=== PATIENT | female | born 1965 | race Caucasian/White ===

== ENCOUNTER 2018-01-12 08:00 | Inpatient (IN) ==
[2018-02-02] MEDS ORDERED: Heparin 10,000 UNITS/10 ML Vial (for IV use) ONE (06:24)
[2018-02-02] MEDS ORDERED: Protamine Sulfate Inj 50 MG/5 ML Vial ONE (06:24)
[2018-02-02] MEDS ORDERED: Thrombin Topical Soln 20,000 UNIT Vial TOPICAL ONE (06:24)
[2018-02-02] MEDS ORDERED: Bupivacaine 0.5% Inj 50 ML MDV Vial ONE (06:25)
[2018-02-02] MEDS ORDERED: Heparin/NS PF Inj 500 ML ONE ×2 (06:25→08:26)
[2018-02-02] MEDS ORDERED: ceFAZolin 2 GM Premix Inj 2 GM/50 ML PIGGYBACK IV.SIG ONE (06:25)
[2018-02-02] MEDS ORDERED: Sodium Chlor 0.9% Inj 500 ML IV.CONT ONE ×2 (06:30→07:19)
[2018-02-02] MEDS ORDERED: Metoprolol Tartrate 25 MG Tablet PO ONE (06:30)
[2018-02-02] MEDS ORDERED: Chlorhexidine Gluconate 2% 1 Pack (2 Cloths) TOPICAL ONE (06:30)
[2018-02-02 07:01] LABS: Baso # (Auto) 0.1 th/mm3 (0.0-0.2); Baso % (Auto) 0.8 % (0.0-2.0); Eos # (Auto) 0.3 th/mm3 (0.0-0.4); Eos % (Auto) 3.8 % (0.0-4.0); Hematocrit 41.4 % (35.0-46.0); Hemoglobin 14.1 gm/dL (11.6-15.3); Lymph # (Auto) 1.4 th/mm3 (1.0-4.8); Lymph % (Auto) 18.1 % (9.0-44.0); Mean Corpuscular HGB Conc 34.2 % (32.0-36.0); Mean Corpuscular Hemoglobin 32.7 pg (27.0-34.0); Mean Corpuscular Volume 95.6 fL (80.0-100.0); Mean Platelet Volume 9.1 fL (7.0-11.0); Mono # (Auto) 0.7 th/mm3 (0.0-0.9); Mono % (Auto) 8.8 % (0.0-8.0); Neut # (Auto) 5.2 th/mm3 (1.8-7.7); Neut % (Auto) 68.5 % (16.0-70.0); Platelet Count 190 th/mm3 (150-450); Red Blood Count 4.33 mil/mm3 (4.00-5.30); Red Cell Distribution Width 13.6 % (11.6-17.2); White Blood Count 7.6 th/mm3 (4.0-11.0)
--- NOTE | 2018-02-02 07:01 | P.HPVS ---
History of Present Illness Chief Complaint: L LE rest pain, failed distal bypasses History of Present Illness: 52 yo female with 2 prior distal bypasses elsewhere. Presents with severe CLTI/ PAD and no autogenous conduit. Plan for LEFT LE bypass - Inpatient Certification If this patient has been admitted as an Inpatient: I certify that the inpatient services were ordered in accordance with Medicare regulations governing the order. This includes certification that hospital inpatient services are reasonable and necessary and in the case of services not specified as inpatient-only under 42 CFR 419.22(n), that they are appropriately provided as inpatient services in accordance to with the 2-midnight benchmark under 43 CFR 412.3(e) Estimated Total Length of Stay (Days): 7 Plans for Post Hospital Care: Home Review of Systems Constitutional: Denies chills Eyes: Denies blind spots Cardiovascular: Denies chest pain PMFSH - History History Provided By: Patient - Medical History Medical History: Medical History (Last Reviewed 02/02/18 @ 06:59 by Coleman Gutiérrez MD) GERD (gastroesophageal reflux disease) Hiatal hernia Claudication High cholesterol Hx of iron deficiency anemia Neuropathy Pain in left leg Peripheral vascular disease Wears dentures Wears partial dentures - Surgical History Surgical History: Surgical History (Last Reviewed 02/02/18 @ 06:59 by Coleman Gutiérrez MD) History of dental surgery Hx of extremity bypass graft Hx of tubal ligation - Tobacco History Tobacco Use In Past 30 Days: Yes Smoking Status: Current every day smoker Tobacco Type: Cigarettes - Alcohol History How Often Do You Have a Drink Containing Alcohol: 2 to 4 times a month Medications and Allergies Active Medications: Active Medications Lactated Ringer's (Lr 1000 Ml Inj) 1,000 mls @ 30 mls/hr IV.CONT .Q24H ONE Stop: 02/03/18 06:29 Sodium Chloride (Ns Inj) 500 mls @ 30 mls/hr IV.CONT .[id number] ONE Stop: 02/02/18 23:09 Allergies Allergy/AdvReac Type Severity Reaction Status Date / Time No Known Allergies Allergy Verified 02/02/18 06:45 Home Medications Medication Instructions Recorded Confirmed Type alprazolam 0.5 mg PO DAILY PRN 01/29/18 02/02/18 History atorvastatin 40 mg PO DAILY 01/29/18 02/02/18 History clopidogrel [Plavix] 75 mg PO HS 01/29/18 02/02/18 History gabapentin 600 mg PO BID 01/29/18 02/02/18 History naproxen 500 mg PO BID PRN 01/29/18 02/02/18 History omeprazole 20 mg PO DAILY 01/29/18 02/02/18 History Physical Exam Neuro: awake, alert. HEENT: NC/AT Neck: no JVD Heart: reg rate, no M Lungs: clear B Abdomen: nontender Vascular: L groin incision well healed L calf incision well healed nonpalpable pedal pulses, nonpalpable femoral pulses L foot ruborous Caprini VTE Risk Assessment Caprini VTE Risk Assessment: Moderate/High Risk (score >= 2) VTE Mechanical Exception: LE ischemia Caprini Risk Assessment Model: Point Value = 1 Point Value = 2 Point Value = 3 Point Value = 5 Age 41-60 Minor surgery BMI > 25 kg/m2 Swollen legs Varicose veins or History of unexplained or recurrent spontaneous Oral contraceptives or hormone replacement Sepsis (< 1 month) Serious lung disease, including pneumonia (< 1 month) Abnormal pulmonary function Acute myocardial infarction Congestive heart failure (< 1 month) History of inflammatory bowel disease Medical patient at bed rest Age 61-74 Arthroscopic surgery Major open surgery (> 45 min) Laparoscopic surgery (> 45 min) Malignancy Confined to bed (> 72 hours) Immobilizing plaster cast Central venous access Age >= 75 History of VTE Family history of VTE Factor V Leiden Prothrombin [id number] Lupus anticoagulant Anticardiolipin antibodies Elevated serum homocysteine Heparin-induced thrombocytopenia Other congenital or acquired thrombophilia Stroke (< 1 month) Elective arthroplasty Hip, pelvis, or leg fracture Acute spinal cord injury (< 1 month) Prophylaxis Regimen: Total Risk Factor Score Risk Level Prophylaxis Regimen 0-1 Low Early ambulation 2 Moderate Order ONE of the following: *Sequential Compression Device (SCD) *Heparin 5000 units SQ BID 3-4 Higher Order ONE of the following medications: *Heparin 5000 units SQ TID *Enoxaparin/Lovenox 40 mg SQ daily (WT < 150 kg, CrCl > 30 mL/min) *Enoxaparin/Lovenox 30 mg SQ daily (WT < 150 kg, CrCl > 10-29 mL/min) *Enoxaparin/Lovenox 30 mg SQ BID (WT < 150 kg, CrCl > 30 mL/min) AND/OR *Sequential Compression Device (SCD) 5 or more Highest Order ONE of the following medications: *Heparin 5000 units SQ TID (Preferred with Epidurals) *Enoxaparin/Lovenox 40 mg SQ daily (WT < 150 kg, CrCl > 30 mL/min) *Enoxaparin/Lovenox 30 mg SQ daily (WT < 150 kg, CrCl > 10-29 mL/min) *Enoxaparin/Lovenox 30 mg SQ BID (WT < 150 kg, CrCl > 30 mL/min) AND *Sequential Compression Device (SCD) Assessment and Plan - Assessment (1) PAD (peripheral artery disease) Code(s): I73.9 - Peripheral vascular disease, unspecified Status: Acute - Plan L LE bypass To OR All questions answered. Sister (Mei): [phone]
[2018-02-02 07:06] LABS: Bacteria,Urine Occasional /hpf; Bilirubin,Urine Negative (Negative); Clarity,Urine Hazy (Clear); Color,Urine Amber (Yellw/Straw); Glucose,Urine (UA) Negative (Negative); Hyaline Casts,Urine 3 /lpf (0-3); Leukocyte Esterase,Urine Trace (Negative); Mucus,Urine Moderate /lpf (Occasional); Nitrite,Urine Negative (Negative); Specific Gravity,Urine 1.021 (1.002-1.035); Squamous Epithelial Cell,Urine 72 /hpf (0-5)
[2018-02-02 07:16] LABS: Calcium 8.8 mg/dL (8.5-10.1); Carbon Dioxide 25.5 meq/L (21.0-32.0); Potassium 3.9 meq/L (3.5-5.1)
[2018-02-02] MEDS ORDERED: Normosol-R pH 7.4 Inj 2,000 ML IV.CONT ONE (07:19)
[2018-02-02] MEDS ORDERED: Lidocaine PF 1% Inj 5 ML Syringe OTHER ONE (07:19)
[2018-02-02] MEDS ORDERED: Glycopyrrolate Inj 1 MG/5 ML Syringe IV.PUSH ONE (07:19)
[2018-02-02] MEDS ORDERED: Phenylephrine/NS 1000 MCG/10ML Syringe IV.PUSH ONE (07:19)
[2018-02-02] MEDS ORDERED: Neostigmine Inj 5 MG/5 ML Syringe IV.PUSH ONE (07:19)
[2018-02-02] MEDS ORDERED: Iohexol 300 MG/ML 50 ML Vial (for Rad Diag) IVCONTRAST ONE (09:01)
[2018-02-02] MEDS ORDERED: Bisacodyl 10 MG Supp RECTAL PRN (11:18)
--- NOTE | 2018-02-02 11:18 | P.OP ---
- Preoperative Diagnosis (1) PAD (peripheral artery disease) - Postoperative Diagnosis (1) PAD (peripheral artery disease) Date of procedure: 02/02/18 Procedure: 1. Aortogram w/ L LE angiogram 2. L ilioprofunda bypass with 8mm 3. L PUNCH MOLDER-TPT bypass with 6mm ringed PTFE Implants: Dacron ringed PTFE Anesthesia: GETA Surgeon: Coleman Gutiérrez MD Forest Firefighter: Elizabeth Viramontes Estimated blood loss (mL): 300 IV fluids (mL): 2,400 Urine output (mL): 215 Pathology: none sent Operation and Findings: occluded old bypasses x 2 AT and peroneal runoff bypass to TPT with heel overlying AT takeoff Good DP signal at end
[2018-02-02] MEDS ORDERED: ALPRAZolam 0.5 MG Tablet PO PRN (11:20)
[2018-02-02] MEDS ORDERED: *Meperidine Inj 25 MG/ML Vial PERIprocedural Use ONLY ONE (11:54)
[2018-02-02] MEDS ORDERED: *morphine SULFATE 10 MG/ML PERIprocedure ONLY ONE (12:11)
[2018-02-02] MEDS ORDERED: fentaNYL Citrate Inj 100 MCG/2 ML Ampul ONE ×2 (12:13)
[2018-02-02] MEDS ORDERED: Morphine Inj 4 MG/ML Vial ONE (12:14)
--- NOTE | 2018-02-02 13:18 | MP ---
cc: Coleman Gutiérrez MD DATE OF OPERATION: 02/02/2018 PREOPERATIVE DIAGNOSIS: Left lower extremity ischemia with tissue loss and multiple failed bypasses. POSTOPERATIVE DIAGNOSIS: Left lower extremity ischemia with tissue loss and multiple failed bypasses. PROCEDURE PERFORMED: 1. Aortogram with left lower extremity angiogram. 2. Left iliac profunda bypass with 8 mm Dacron. 3. Left common femoral artery to tibioperoneal trunk bypass with 6 mm ring PTFE. ATTENDING SURGEON: Coleman Gutiérrez MD AIR PURIFIER SERVICER SURGEON: Elizabeth Viramontes. INDICATIONS FOR PROCEDURE: The patient is a 52-year-old lady who has 2 failed bypasses. She presented to my clinic with ABIs of 0.3, nonpalpable femoral and pedal pulses, and a CT scan showing occluded bypasses. She was taken to the operating room for a third time redo revascularization. There was no prior catheter-based imaging available for my review and of note, she has no upper or lower extremity vein. DESCRIPTION OF PROCEDURE: Informed consent was obtained from the patient. She was taken to the operating room and placed supine on the operating table. An appropriate timeout was taken to ensure the patient's identity, the operative site and planned procedure. Two grams of Ancef was administered prior to skin incision and will be a single preoperative dose. Everyone in the room agreed with the timeout and we proceeded. She was prepped from her nipples to her toes. A 21-gauge micropuncture needle was used to access the right common femoral artery. This was exchanged using a Seldinger technique for a micropuncture sheath through which a 0.035 Glidewire was introduced and the micropuncture sheath exchanged for a 4-[place] sheath. A VCF catheter was placed over the wire and through the sheath and aortogram and pelvic arteriogram was obtained. A Glidewire VCF catheter was advanced down the left common femoral artery. Left lower extremity arteriogram was obtained. The wire, catheter and sheath were removed and pressure held was held for hemostasis. The patient has a patent terminal aorta, common iliac arteries and external iliac arteries bilaterally. The left common femoral artery was occluded. Collaterals reperfused a profunda. There are occluded bypasses with anastomotic pseudoaneurysm hall. The SFA is occluded. The popliteal artery is occluded and then profunda based collaterals reconstitute a tibioperoneal trunk and the peroneal artery and anterior tibial artery are the dominant runoff vessels to the foot. An incision was made in the patient's left groin and carried down through subcutaneous tissue with electrocautery. Dense scar tissue was encountered. The external iliac artery was encircled with a vessel loop. Common femoral artery was dissected free, including to 2 old bypass grafts. The SFA and profunda were dissected free and encircled with a vessel loop. A separate incision was made in the patient's medial calf, carried down through subcutaneous tissue with electrocautery. The whole bypass was identified. We dissected this down to the tibioperoneal trunk and the below-knee popliteal artery as well as the anterior tibial artery. All these were circumferentially dissected and encircled with vessel loops. A tunnel was then created between these two and a 6 mm PTFE was passed through the tunnel, taking caution not to twist it. The patient was systemically heparinized throughout the case and the ACT was kept greater than 250. The external iliac artery was controlled with a profunda clamp. The profunda was controlled with 2 separate profunda clamps. The old bypass grafts in the [place] SFA, which was noted to be occluded, were all transected and the distal end was oversewn with 4-0 Prolene. The entire common femoral artery was resected and the external iliac artery was endarterectomized as well as the profunda was endarterectomized. An 8 mm Dacron was spatulated and sewn end-to-end proximally and end-to-end distally with 5-0 and 6-0 Prolene suture respectively. At the completion, it was flushed and noted to be hemostatic. There was a nice Doppler signal in the profunda outflow as well as in a side branch of the profunda. The clamps were then reapplied on the Dacron and the longitudinal arteriotomy was made. The graftotomy was made with an 11 blade and extended with [place] scissors. The 6 mm PTFE was spatulated and sewn end-to-side to the Dacron with running 5-0 Prolene suture. At the completion, it was flushed and noted to be hemostatic. We then turned our attention towards the distal anastomosis. Proximal control was obtained in the below-knee popliteal artery and distal control in the tibioperoneal trunk as well as the anterior tibial artery. The artery was incised with an 11 blade and extended with [place] scissors. The distal anastomoses were performed immediately on the tibioperoneal trunk adjacent and opposite the anterior tibial artery takeoff. The graft was cut to appropriate length, spatulated and sewn end-to-side with running 6-0 Prolene suture. At the completion, it was flushed and noted to be hemostatic. There was an excellent signal in the dorsalis pedis of the foot. The wounds were irrigated. Heparin reversed with protamine. The wounds were made hemostatic and closed with 2-0 Vicryl, 3-0 Polysorb and 4-0 Monocryl. Sponge and needle counts were correct at the end of the case. I was present, scrubbed, and performed the entire procedure. Coleman Gutiérrez MD RJDavid/es/ll , 11:49 AM , 12:00 PM JOHN
--- NOTE | 2018-02-02 14:14 | P.PNVS ---
Subjective Post Op Day #: 0 Procedure: L groin reconstruction, L fem-TPT bypass (redo) Subjective/Hospital Course: sitting in bed, no complaints groin mildly uncomfortable foot feels warm Objective Vital Signs / I&O: Vital Signs 02/02/18 06:50 02/02/18 11:50 02/02/18 12:00 Temperature 98.3 F 97.4 F L Pulse Rate 81 98 H 92 H Respiratory Rate 18 16 16 Blood Pressure 133/73 180/86 H 143/78 H Pulse Oximetry 98 99 100 02/02/18 12:15 02/02/18 12:30 02/02/18 13:00 Temperature Pulse Rate 86 82 82 Respiratory Rate 16 16 16 Blood Pressure 156/70 H 148/78 H 142/77 H Pulse Oximetry 100 100 97 02/02/18 13:36 Temperature Pulse Rate 82 Respiratory Rate 18 Blood Pressure 156/73 H Pulse Oximetry 94 L Intake & Output 02/01/18 02/02/18 02/02/18 18:59 06:59 18:59 Intake Total 2550 / 2550 Output Total 665 / 665 Balance 1885 / 1885 Weight 77.2 kg Intake: IV 50 / 50 Ancef 2 GM Premix Inj 2 gm In 50 / 50 50 ml @ 0 mls/hr IV.SIG .STK- MED ONE Rx#:[id number] Anesthesia Amount 2400 / 2400 Other 100 / 100 Output: Estimated Blood Loss 300 / 300 Urine Amount (Catheter) 365 / 365 Indwelling Temp Sensing 215 / 215 Catheter Indwelling Urethral Catheter 150 / 150 Other: Other Intake Source Saline Solution Date of Last Bowel Movement 02/02/18 Weight On Admission 77.2 kg Exam: L groin Prevena in place, soft Lower leg incision c/d/i palpable DP Laboratory Results - last 24 hr 02/02/18 02/02/18 02/02/18 06:25 06:30 06:30 WBC 7.6 RBC 4.33 Hgb 14.1 Hct 41.4 MCV 95.6 MCH 32.7 MCHC 34.2 RDW 13.6 Plt Count 190 MPV 9.1 Neut % (Auto) 68.5 Lymph % (Auto) 18.1 [place] % (Auto) 8.8 H Eos % (Auto) 3.8 Baso % (Auto) 0.8 Neut # (Auto) 5.2 Lymph # (Auto) 1.4 [place] # (Auto) 0.7 Eos # (Auto) 0.3 Baso # (Auto) 0.1 WBC Differential . Differential Comment Auto diff final PT INR Sodium 140 Potassium 3.9 Chloride 106 Carbon Dioxide 25.5 Anion Gap 9 BUN 9 Creatinine 0.76 Estimated GFR 80 L Random Glucose 103 Calcium 8.8 Urine Color Sw[place] Urine Clarity Hazy H Urine pH 5.0 Ur Specific [place] 1.021 Urine Protein 30 H Urine Glucose (UA) Negative Urine Ketones Trace H Urine Occult Blood Negative Urine Nitrate Negative Urine Bilirubin Negative Urine Urobilinogen 2.0 H Ur Leukocyte Esterase Trace H Urine RBC 2 Urine WBC 10 H Ur Squamous Epith Cells 72 Urine Bacteria Occasional H Hyaline Casts 3 Urine Mucus Moderate H Micro UA Comment Culture indicated Ur Microscopic Review Not Reportable Urine Culture Comments Culture indicated Blood Type Blood Type Recheck Antibody Screen 02/02/18 02/02/18 06:30 06:30 WBC RBC Hgb Hct MCV MCH MCHC RDW Plt Count MPV Neut % (Auto) Lymph % (Auto) [place] % (Auto) Eos % (Auto) Baso % (Auto) Neut # (Auto) Lymph # (Auto) [place] # (Auto) Eos # (Auto) Baso # (Auto) WBC Differential Differential Comment PT 10.0 INR 1.0 Sodium Potassium Chloride Carbon Dioxide Anion Gap BUN Creatinine Estimated GFR Random Glucose Calcium Urine Color Urine Clarity Urine pH Ur Specific [place] Urine Protein Urine Glucose (UA) Urine Ketones Urine Occult Blood Urine Nitrate Urine Bilirubin Urine Urobilinogen Ur Leukocyte Esterase Urine RBC Urine WBC Ur Squamous Epith Cells Urine Bacteria Hyaline Casts Urine Mucus Micro UA Comment Ur Microscopic Review Urine Culture Comments Blood Type O Negative Blood Type Recheck Required Antibody Screen Negative Assessment and Plan - Assessment (1) PAD (peripheral artery disease) Code(s): I73.9 - Peripheral vascular disease, unspecified Status: Acute - Plan POD#0 s/p redo L LE bypass palpable pulse 1. Pain control 2. Pulse checks 3. OOB TC in a.m. POD#1 4. Sexton out in a.m. POD#1 Discharge Plannin-5 days likely depending on mobility, pain control
[2018-02-02] MEDS: Morphine Inj 4 MG/ML Vial IV.PUSH PRN (18:21)
[2018-02-02] MEDS: Senna/Docusate Sodium 8.6/50 MG Tablet PO SCH (20:11)
[2018-02-02] MEDS: Gabapentin 300 MG Capsule PO SCH (20:11)
--- NOTE | 2018-02-02 21:01 | ECG ---
Date Performed: 02/02/2018 Time Performed: 06:42:58 PTAGE: 52 years EKG: Sinus rhythm NORMAL ECG NO PREVIOUS TRACING DOCTOR: Britney Ge Interpretating Date/Time 02/02/2018 21:01:14
[2018-02-03 05:25] LABS: Hematocrit 36.1 % (35.0-46.0); Hemoglobin 12.5 gm/dL (11.6-15.3); Mean Corpuscular HGB Conc 34.5 % (32.0-36.0); Mean Corpuscular Hemoglobin 32.6 pg (27.0-34.0); Mean Corpuscular Volume 94.4 fL (80.0-100.0); Mean Platelet Volume 9.5 fL (7.0-11.0); Platelet Count 156 th/mm3 (150-450); Red Blood Count 3.82 mil/mm3 (4.00-5.30); Red Cell Distribution Width 13.7 % (11.6-17.2); White Blood Count 10.7 th/mm3 (4.0-11.0)
[2018-02-03 05:47] LABS: Anion Gap 6 meq/L (5-15); Blood Urea Nitrogen 7 mg/dL (7-18); Calcium 8.4 mg/dL (8.5-10.1); Carbon Dioxide 29.1 meq/L (21.0-32.0); Chloride 105 meq/L (98-107); Glomerular Filtration Rate Greater Than 89 mL/min (>89); Glucose,Random 96 mg/dL (74-106); Potassium 4.1 meq/L (3.5-5.1); Sodium 140 meq/L (136-145)
--- NOTE | 2018-02-03 07:20 | P.PNVS ---
Subjective Post Op Day #: 1 Procedure: L groin reconstruction, L fem-TPT bypass (redo) Subjective/Hospital Course: looks great, no complaints emerson po pain controlled Objective Vital Signs / I&O: Vital Signs 02/02/18 11:50 02/02/18 12:00 02/02/18 12:15 Temperature 97.4 F L Pulse Rate 98 H 92 H 86 Respiratory Rate 16 16 16 Blood Pressure 180/86 H 143/78 H 156/70 H Pulse Oximetry 99 100 100 02/02/18 12:30 02/02/18 13:00 02/02/18 13:36 Temperature Pulse Rate 82 82 82 Respiratory Rate 16 16 18 Blood Pressure 148/78 H 142/77 H 156/73 H Pulse Oximetry 100 97 94 L 02/02/18 14:00 02/02/18 15:43 02/02/18 19:00 Temperature 98.0 F Pulse Rate 86 86 82 Respiratory Rate 20 Blood Pressure 150/80 H Pulse Oximetry 98 02/02/18 20:00 02/02/18 22:00 02/02/18 23:00 Temperature 97.7 F Pulse Rate 72 68 79 Respiratory Rate 20 Blood Pressure 156/74 H Pulse Oximetry 97 02/03/18 00:00 02/03/18 01:00 02/03/18 01:59 Temperature 97.9 F Pulse Rate 85 73 75 Respiratory Rate 18 Blood Pressure 93/53 L Pulse Oximetry 93 L 02/03/18 03:00 02/03/18 03:21 02/03/18 04:00 Temperature 97.9 F Pulse Rate 86 77 82 Respiratory Rate 16 Blood Pressure 97/52 L Pulse Oximetry 93 L 02/03/18 05:00 02/03/18 06:00 Temperature Pulse Rate 78 81 Respiratory Rate Blood Pressure Pulse Oximetry Intake & Output 02/02/18 02/03/18 02/03/18 18:59 06:59 18:59 Intake Total 3650 / 3650 480 / 480 Output Total 1665 / 1665 1725 / 1725 Balance 1984 / 1984 -1245 / -1245 Weight 81.5 kg Intake: IV 50 / 50 Ancef 2 GM Premix Inj 2 gm In 50 / 50 50 ml @ 0 mls/hr IV.SIG .STK- MED ONE Rx#:[id number] Oral 1100 / 1100 480 / 480 Anesthesia Amount 2400 / 2400 Other 100 / 100 Output: Estimated Blood Loss 300 / 300 Urine Amount (Catheter) 1365 / 1365 1725 / 1725 Indwelling Temp Sensing 215 / 215 1725 / 1725 Catheter Indwelling Urethral Catheter 1150 / 1150 Other: Other Intake Source Saline Solution Date of Last Bowel Movement 02/02/18 Exam: sitting in bed, comfortable L groin soft, NT, Prevena in place L calf with mild ecchymoses palpable DP Laboratory Results - last 24 hr 02/02/18 02/03/18 02/03/18 06:30 04:45 04:45 WBC 10.7 RBC 3.82 L Hgb 12.5 Hct 36.1 MCV 94.4 MCH 32.6 MCHC 34.5 RDW 13.7 Plt Count 156 MPV 9.5 Sodium 140 Potassium 4.1 Chloride 105 Carbon Dioxide 29.1 Anion Gap 6 BUN 7 Creatinine 0.61 Estimated GFR Greater than 89 Random Glucose 96 Calcium 8.4 L Antibody Screen Negative Assessment and Plan - Assessment (1) PAD (peripheral artery disease) Code(s): I73.9 - Peripheral vascular disease, unspecified Status: Acute - Plan POD#1 s/p redo L LE bypass palpable pulse 1. Pain control 2. Pulse checks 3. OOB TC 4. Sexton out Discharge Plannin-4 days likely depending on mobility, pain control
[2018-02-03] MEDS: Gabapentin 300 MG Capsule PO SCH ×2 (09:04→21:30)
[2018-02-03] MEDS: Senna/Docusate Sodium 8.6/50 MG Tablet PO SCH ×2 (09:04→21:30)
[2018-02-03] MEDS: Pantoprazole Sodium 20 MG DR Tablet PO SCH (09:04)
[2018-02-03] MEDS: Enoxaparin Inj 40 MG/0.4 ML Syringe SQ SCH (12:14)
[2018-02-03] MEDS: Morphine Inj 4 MG/ML Vial IV.PUSH PRN (14:31)
--- NOTE | 2018-02-04 07:30 | P.PNVS ---
Subjective Post Op Day #: 2 Procedure: L groin reconstruction, L fem-TPT bypass (redo) Subjective/Hospital Course: OOB and ambulated yesterday c/o being sore but otherwise doing well emerson po voiding since Sexton out Objective Vital Signs / I&O: Vital Signs 02/03/18 08:00 02/03/18 09:00 02/03/18 10:00 Temperature 97.9 F Pulse Rate 85 101 H 92 H Respiratory Rate 16 Blood Pressure 123/74 Pulse Oximetry 94 L 02/03/18 11:00 02/03/18 12:00 02/03/18 13:00 Temperature 98.0 F Pulse Rate 94 H 83 98 H Respiratory Rate 16 Blood Pressure 119/78 Pulse Oximetry 99 02/03/18 14:00 02/03/18 15:00 02/03/18 16:00 Temperature 98.2 F Pulse Rate 95 H 94 H 95 H Respiratory Rate 16 Blood Pressure 127/64 Pulse Oximetry 98 02/03/18 17:00 02/03/18 18:00 02/03/18 19:00 Temperature Pulse Rate 101 H 107 H 105 H Respiratory Rate Blood Pressure Pulse Oximetry 02/03/18 19:57 02/03/18 20:00 02/03/18 21:00 Temperature 98.2 F Pulse Rate 100 H 102 H 106 H Respiratory Rate 20 Blood Pressure 126/72 Pulse Oximetry 93 L 02/03/18 22:00 02/03/18 23:00 02/04/18 00:00 Temperature 99.5 F Pulse Rate 102 H 104 H 108 H Respiratory Rate 16 Blood Pressure 139/60 Pulse Oximetry 95 02/04/18 00:56 02/04/18 02:00 02/04/18 03:00 Temperature Pulse Rate 107 H 102 H 104 H Respiratory Rate Blood Pressure Pulse Oximetry 02/04/18 03:53 02/04/18 03:55 02/04/18 04:59 Temperature 98.8 F Pulse Rate 106 H 105 H 108 H Respiratory Rate 20 Blood Pressure 110/59 L Pulse Oximetry 93 L 02/04/18 05:53 Temperature Pulse Rate 107 H Respiratory Rate Blood Pressure Pulse Oximetry Intake & Output 02/03/18 02/04/18 02/04/18 18:59 06:59 18:59 Intake Total 2200 / 2200 480 / 480 Output Total 700 / 700 1000 / 1000 Balance 1500 / 1500 -520 / -520 Weight 82.5 kg Intake: IV 1000 / 1000 LR 1000 mL Inj 1,000 ML @ 30 1000 / 1000 mls/hr IV.CONT .Q24H ONE Rx#: [id number] Oral 1200 / 1200 480 / 480 Output: Urine 700 / 700 1000 / 1000 Exam: alert, no distress L groin with ecchymoses L calf incision looks great palpable DP Microbiology 02/02/18 06:25 Urine Culture - Preliminary Clean Catch Urine Immature growth - reincubate Assessment and Plan - Assessment (1) PAD (peripheral artery disease) Code(s): I73.9 - Peripheral vascular disease, unspecified Status: Acute - Plan POD#2 s/p redo L LE bypass palpable pulse 1. start plavix today; continue ASA 2. OOB/PT Discharge Plannin-3 days, pending mobility
[2018-02-04] MEDS: Gabapentin 300 MG Capsule PO SCH ×2 (08:37→20:33)
[2018-02-04] MEDS: Pantoprazole Sodium 20 MG DR Tablet PO SCH (08:37)
[2018-02-04] MEDS: Senna/Docusate Sodium 8.6/50 MG Tablet PO SCH ×2 (08:37→20:33)
[2018-02-04] MEDS: Enoxaparin Inj 40 MG/0.4 ML Syringe SQ SCH (10:56)
[2018-02-04] MEDS: Morphine Inj 4 MG/ML Vial IV.PUSH PRN ×2 (10:59→14:54)
[2018-02-04] MEDS ORDERED: Acetaminophen 325 MG Tablet PO PRN (20:26)
[2018-02-04] MEDS: Metoprolol Tartrate 25 MG Tablet PO SCH (20:33)
[2018-02-05] MEDS: Gabapentin 300 MG Capsule PO SCH ×2 (09:36→20:29)
[2018-02-05] MEDS: Senna/Docusate Sodium 8.6/50 MG Tablet PO SCH ×2 (09:36→20:30)
[2018-02-05] MEDS: Metoprolol Tartrate 25 MG Tablet PO SCH ×2 (09:37→20:30)
[2018-02-05] MEDS: Pantoprazole Sodium 20 MG DR Tablet PO SCH (09:37)
--- NOTE | 2018-02-05 10:20 | P.PNVS ---
Subjective Post Op Day #: 3 Procedure: L groin reconstruction, L fem-TPT bypass (redo) Subjective/Hospital Course: febrile last night, improved with Tylenol feels well otherwise foot ok Objective Vital Signs / I&O: Vital Signs 02/04/18 11:00 02/04/18 12:00 02/04/18 13:00 Temperature 98.7 F Pulse Rate 98 H 117 H 109 H Respiratory Rate 16 Blood Pressure 122/65 Pulse Oximetry 98 02/04/18 14:00 02/04/18 15:00 02/04/18 16:00 Temperature 100.0 F H Pulse Rate 117 H 110 H 107 H Respiratory Rate 16 Blood Pressure 125/88 Pulse Oximetry 99 02/04/18 17:00 02/04/18 18:00 02/04/18 19:00 Temperature Pulse Rate 105 H 122 H 121 H Respiratory Rate Blood Pressure Pulse Oximetry 02/04/18 20:00 02/04/18 21:00 02/04/18 21:05 Temperature 102.8 F H Pulse Rate 116 H 110 H Respiratory Rate 16 16 Blood Pressure 135/62 Pulse Oximetry 95 02/04/18 21:27 02/04/18 22:00 02/04/18 23:00 Temperature 99.6 F Pulse Rate 88 87 Respiratory Rate Blood Pressure Pulse Oximetry 02/05/18 00:00 02/05/18 00:35 02/05/18 01:00 Temperature 99.1 F Pulse Rate 84 84 Respiratory Rate 16 16 Blood Pressure 96/53 L Pulse Oximetry 99 02/05/18 02:00 02/05/18 03:00 02/05/18 04:00 Temperature 98.4 F Pulse Rate 88 93 H 88 Respiratory Rate Blood Pressure Pulse Oximetry 02/05/18 05:00 02/05/18 07:00 02/05/18 08:00 Temperature 98.9 F Pulse Rate 92 H 89 88 Respiratory Rate 20 Blood Pressure 136/59 L Pulse Oximetry 97 02/05/18 09:00 02/05/18 10:00 Temperature Pulse Rate 88 90 Respiratory Rate Blood Pressure Pulse Oximetry Intake & Output 02/04/18 02/05/18 02/05/18 18:59 06:59 18:59 Intake Total 850 / 850 480 / 480 Output Total 1800 / 1800 550 / 550 Balance -950 / -950 -70 / -70 Weight 76.6 kg Intake: Oral 850 / 850 480 / 480 Output: Urine 1800 / 1800 550 / 550 Exam: sitting in chair no complaints Pulses: palpable DP LEFT Incisions: L BK incision ok groin with soft ecchymoses but nontender Microbiology 02/02/18 06:25 Urine Culture - Final Clean Catch Urine 50-100,000 cfu/mL mixed gram positive tigre (probable contaminants) Assessment and Plan - Assessment (1) PAD (peripheral artery disease) Code(s): I73.9 - Peripheral vascular disease, unspecified Status: Acute - Plan POD#3 s/p redo L LE bypass palpable pulse 1. reg diet, meds 2. Check labs in morning - fever likely atalectasis 3. D/C planning, work with PT Discharge Plannin-3 days, pending mobility
[2018-02-05] MEDS: Enoxaparin Inj 40 MG/0.4 ML Syringe SQ SCH (10:49)
[2018-02-06 05:02] LABS: Hematocrit 31.6 % (35.0-46.0); Mean Corpuscular HGB Conc 34.8 % (32.0-36.0); Mean Corpuscular Hemoglobin 32.7 pg (27.0-34.0); Mean Corpuscular Volume 94.1 fL (80.0-100.0); Mean Platelet Volume 9.4 fL (7.0-11.0); Platelet Count 150 th/mm3 (150-450); Red Blood Count 3.35 mil/mm3 (4.00-5.30); Red Cell Distribution Width 13.1 % (11.6-17.2); White Blood Count 9.5 th/mm3 (4.0-11.0)
[2018-02-06 05:32] LABS: Calcium 8.4 mg/dL (8.5-10.1); Carbon Dioxide 31.2 meq/L (21.0-32.0); Potassium 3.8 meq/L (3.5-5.1)
--- NOTE | 2018-02-06 08:38 | P.PNVS ---
Subjective Post Op Day #: 4 Procedure: L groin reconstruction, L fem-TPT bypass (redo) Subjective/Hospital Course: looks great says "ready to go home" Objective Vital Signs / I&O: Vital Signs 02/05/18 09:00 02/05/18 10:00 02/05/18 11:00 Temperature Pulse Rate 88 90 90 Respiratory Rate Blood Pressure Pulse Oximetry 02/05/18 12:00 02/05/18 13:00 02/05/18 14:00 Temperature 97.9 F Pulse Rate 82 88 90 Respiratory Rate 20 Blood Pressure 106/59 L Pulse Oximetry 100 02/05/18 15:00 02/05/18 16:00 02/05/18 17:00 Temperature 98.4 F Pulse Rate 90 94 H 100 H Respiratory Rate 16 Blood Pressure 123/68 Pulse Oximetry 95 02/05/18 18:00 02/05/18 20:00 02/05/18 21:00 Temperature 99.7 F H Pulse Rate 102 H 96 H 114 H Respiratory Rate 18 Blood Pressure 126/63 Pulse Oximetry 97 02/05/18 22:00 02/05/18 23:00 02/06/18 00:00 Temperature 99.8 F H Pulse Rate 90 92 H 88 Respiratory Rate Blood Pressure 92/50 L Pulse Oximetry 96 02/06/18 01:00 02/06/18 02:00 02/06/18 03:00 Temperature Pulse Rate 94 H 90 94 H Respiratory Rate Blood Pressure Pulse Oximetry 02/06/18 04:00 02/06/18 05:00 02/06/18 06:00 Temperature 98.9 F Pulse Rate 94 H 94 H 94 H Respiratory Rate Blood Pressure 98/58 L Pulse Oximetry 96 Intake & Output 02/05/18 02/06/18 02/06/18 18:59 06:59 18:59 Intake Total 750 / 750 680 / 680 Output Total 200 / 200 300 / 300 Balance 550 / 550 380 / 380 Weight 76.6 kg 77.5 kg Intake: Oral 750 / 750 680 / 680 Output: Urine 200 / 200 300 / 300 Other: # Voids 5 4 Date of Last Bowel Movement 02/02/18 # Bowel Movements 0 Exam: L groin soft, but slightly more full immediately around wound. Mild erythema lower leg ok palpable DP Laboratory Results - last 24 hr 02/06/18 02/06/18 04:06 04:06 WBC 9.5 RBC 3.35 L Hgb 11.0 L Hct 31.6 L MCV 94.1 MCH 32.7 MCHC 34.8 RDW 13.1 Plt Count 150 MPV 9.4 Sodium 136 Potassium 3.8 Chloride 98 Carbon Dioxide 31.2 Anion Gap 7 BUN 12 Creatinine 0.69 Estimated GFR 89 Random Glucose 113 H Calcium 8.4 L Assessment and Plan - Assessment (1) PAD (peripheral artery disease) Code(s): I73.9 - Peripheral vascular disease, unspecified Status: Acute - Plan POD#4 s/p redo L LE bypass palpable pulse 1. reg diet, meds 2. will start Bactrim x 10 days 3. If wound better tomorrow, will d/c then Discharge Planning: potentially Sat to home with po antibiotics
[2018-02-06] MEDS: Metoprolol Tartrate 25 MG Tablet PO SCH ×2 (10:07→20:05)
[2018-02-06] MEDS: Pantoprazole Sodium 20 MG DR Tablet PO SCH (10:07)
[2018-02-06] MEDS: Senna/Docusate Sodium 8.6/50 MG Tablet PO SCH ×2 (10:07→20:05)
[2018-02-06] MEDS: Gabapentin 300 MG Capsule PO SCH ×2 (10:08→20:06)
[2018-02-06] MEDS: Enoxaparin Inj 40 MG/0.4 ML Syringe SQ SCH (10:09)
[2018-02-07 08:12] VITALS: BP 90/57; TEMP 98.3; O2SAT 93
[2018-02-07] MEDS: Metoprolol Tartrate 25 MG Tablet PO SCH (08:52)
[2018-02-07] MEDS: Senna/Docusate Sodium 8.6/50 MG Tablet PO SCH (08:53)
[2018-02-07] MEDS: Pantoprazole Sodium 20 MG DR Tablet PO SCH (08:53)
[2018-02-07] MEDS: Gabapentin 300 MG Capsule PO SCH (08:53)
[2018-02-07 09:29] VITALS: RESP 0
--- NOTE | 2018-02-07 09:32 | P.PNVS ---
Subjective Post Op Day #: 5 Procedure: L groin reconstruction, L fem-TPT bypass (redo) Subjective/Hospital Course: looks good ambulating independently [facility] po Objective Vital Signs / I&O: Vital Signs 02/06/18 10:00 02/06/18 10:59 02/06/18 11:00 Temperature Pulse Rate 80 76 Respiratory Rate 20 Blood Pressure Pulse Oximetry 02/06/18 12:00 02/06/18 13:00 02/06/18 14:00 Temperature 98.3 F Pulse Rate 85 76 69 Respiratory Rate 20 Blood Pressure 97/62 L Pulse Oximetry 02/06/18 15:00 02/06/18 16:00 02/06/18 17:00 Temperature 97.9 F Pulse Rate 69 76 69 Respiratory Rate Blood Pressure 100/52 L Pulse Oximetry 02/06/18 18:00 02/06/18 19:00 02/06/18 20:00 Temperature 98.7 F Pulse Rate 69 84 87 Respiratory Rate 18 Blood Pressure 89/67 L Pulse Oximetry 95 02/06/18 21:00 02/06/18 22:00 02/06/18 23:00 Temperature Pulse Rate 84 81 85 Respiratory Rate Blood Pressure Pulse Oximetry 02/06/18 23:21 02/06/18 23:33 02/07/18 00:00 Temperature 98.6 F Pulse Rate 82 83 Respiratory Rate 18 18 Blood Pressure 95/53 L Pulse Oximetry 95 02/07/18 01:00 02/07/18 02:00 02/07/18 03:00 Temperature Pulse Rate 75 81 82 Respiratory Rate Blood Pressure Pulse Oximetry 02/07/18 04:00 02/07/18 04:11 02/07/18 05:00 Temperature 98.6 F Pulse Rate 81 81 Respiratory Rate 18 18 Blood Pressure 97/66 L Pulse Oximetry 95 02/07/18 07:00 02/07/18 08:00 02/07/18 09:00 Temperature 98.3 F Pulse Rate 80 79 82 Respiratory Rate 18 0 L Blood Pressure 90/57 L Pulse Oximetry 93 L Intake & Output 02/06/18 02/07/18 02/07/18 18:59 06:59 18:59 Intake Total 600 / 600 240 / 240 Output Total 300 / 300 Balance 300 / 300 240 / 240 Weight 77.5 kg Intake: Oral 600 / 600 240 / 240 Output: Estimated Blood Loss 300 / 300 Other: # Voids 4 1 Date of Last Bowel Movement 02/02/18 02/06/18 # Bowel Movements 0 0 Exam: L groin with soft hematoma, no firmness erythema markedly improved palpable DP Assessment and Plan - Assessment (1) PAD (peripheral artery disease) Code(s): I73.9 - Peripheral vascular disease, unspecified Status: Acute - Plan POD#5 s/p redo L LE bypass palpable pulse 1. d/c today to finish 10 days of Bactrim Discharge Planning: today with po antibiotics x 10d total
--- NOTE | 2018-02-07 09:37 | P.DS ---
Discharge Summary - Admission Date 02/02/18 05:38 - Admission Diagnosis (1) PAD (peripheral artery disease) - Discharge Diagnosis (1) PAD (peripheral artery disease) Status: Acute - Summary Brief History from admission: 52 yo female with 2 prior distal bypasses elsewhere. Presents with severe CLTI/ PAD and no autogenous conduit. Plan for LEFT LE bypass Procedure: L groin reconstruction, L fem-TPT bypass (redo) Significant Findings: The patient underwent re-do (x2) L femoral bypass along with groin reconstruction. She did well and had a strong signal in her foot at the end of the case. Hospital Course: She was admitted post-operatively and did well. Over the 5 days post-op she was in house, she had a palpable pedal pulse. Her L thigh incision was slightly full and erythematous but soft, and the erythema abated with po Bactrim. At the time of discharge she was ambulating and had no pain. She was tolerating a regular diet. [facility] and her last narcotic prescription was in Dec 2016. I wrote her for 3 days of oxycodone for management of acute post-operative pain. - Discharge Instructions Call our office on Friday. She has our numbers and we will also reach out. Office: [phone] Any questions or concerns: Call [facility] at [facility] [phone] Discharge Plan - Discharge Disposition Patient Disposition: 01 Discharge Home - Physicians Team Primary Care Provider: Stefan Anton Attending Provider: Coleman Gutiérrez - Rxs /Orders / Referrals /Forms Prescriptions: No Action alprazolam 0.5 mg Tablet 0.5 mg PO DAILY PRN (Reason: Anxiety) atorvastatin 40 mg Tablet 40 mg PO DAILY clopidogrel [Plavix] 75 mg Tablet 75 mg PO HS gabapentin 300 mg Capsule 600 mg PO BID naproxen 500 mg Tablet 500 mg PO BID PRN (Reason: Pain) omeprazole 20 mg Capsule,Delayed Release(Dr/Ec) 20 mg PO DAILY Referrals: Stefan Anton MD [Primary Care Provider] - See Instructions
[2018-02-07 10:50] VITALS: PULSE 80
[2018-02-07] MEDS: Enoxaparin Inj 40 MG/0.4 ML Syringe SQ SCH (11:30)
== END 2018-02-07 12:55 | disposition home or self-care (01) ==
LOC: HSDI 02-02 05:38 → HCPC 02-02 13:26
PROVIDERS: ADMIT Surgery; ATTEND Surgery